=== PATIENT | male | born 1980 | race Two or more races ===

== ENCOUNTER 2025-03-28 02:17 | Emergency (ER) | payer OTHER ==
[~2025-03-28] VITALS: Ht 177.8 cm; Wt 77.1 kg
[2025-03-28 04:39] VITALS: BP 131/68; TEMP 97.8; O2SAT 98
== END 2025-03-28 04:40 ==
LOC: ER 02:28
DX: S69.81XA Other specified injuries of right wrist, hand and finger(s), initial encounter (principal); Z60.2 Problems related to living alone; X58.XXXA Exposure to other specified factors, initial encounter; Y93.89 Activity, other specified; Y92.89 Other specified places as the place of occurrence of the external cause; Y99.8 Other external cause status
CPT/HCPCS: 73130-TC